=== PATIENT | female | born 1990 | race Caucasian/White ===

== ENCOUNTER 2018-05-27 06:36 | Emergency (ER) | payer OTHER ==
[2018-05-27] MEDS ORDERED: NS 1,000 ML IV ONE ×2 (07:16→07:27)
[2018-05-27] MEDS ORDERED: ONDANSETRON 4 MG/2 ML VIAL ONE (07:16)
[2018-05-27] MEDS ORDERED: ONDANSETRON 4 MG/2 ML VIAL IVP ONE (07:17)
[2018-05-27 07:20] LABS: PLATELET COUNT 264 10^3/uL (150-400)
[2018-05-27] MEDS ORDERED: FAMOTIDINE 20 MG/NACL 50 ML IV ONE (07:27)
--- NOTE | 2018-05-27 07:31 | EDPHY ---
H & P Time Seen by Provider: 05/27/18 06:57 HPI/ROS: HPI Nausea, muscle aches and joint aches, fatigue. 28-year-old female by private vehicle. She comes from work. She reports that 3 days ago she had some sharp stabbing pelvic pains and then started for menstruation. She reports that the lower abdominal cramping was more severe than usual. She is feeling better in that regard now but states that soon after this she developed muscle aches and joint aches followed by nausea and some intermittent vomiting. She also reports feeling fatigued. She got to work and felt nauseous and dry he did and was then sent to the emergency department for evaluation. She has had a mild and dry nonproductive cough. ROS: Constitutional: No fever, as above. Eyes: No discharge. No changes in vision. ENT: No sore throat. No nasal congestion or rhinorrhea. Respiratory: As above. No shortness of breath. Cardiac: No chest pain, no palpitations. Gastrointestinal: As above, no diarrhea. Genitourinary: No hematuria. No dysuria or increased frequency with urination. Musculoskeletal: As above. Skin: No rashes. Neurological: No headache. No focal weakness or altered sensation. Past medical history: Migraine headaches. Social history: Here by herself. Nonsmoker. No alcohol PE Physical Exam: General Appearance: Alert, no distress. This patient is responding to questions appropriately and in full sentences. This patient appears well- hydrated and well-nourished. Eyes: Pupils equal and round no pallor or injection. No lid edema, erythema or injection. Respiratory: There are no retractions, lungs are clear to auscultation with good air movement bilaterally. Cardiovascular: Regular rate and rhythm. No murmur. Gastrointestinal: Abdomen is soft and nontender, no masses, bowel sounds normal. No focal tenderness at McBurney's point. No Cárdenas sign. Neurological: Motor sensory function is grossly intact. Cranial nerves are normal. Gait is normal. Skin: Warm and dry, no rashes. Musculoskeletal: Neck is supple and nontender. Extremities are symmetrical. All joints range without pain or impingement. Psychiatric: No agitation. No depression. Database: EKG: Imaging: Chest x-ray: Mild bronchitis. Otherwise no acute cardiopulmonary disease process. Interpreted by me. Procedures: Emergency department course: IV was placed from triage. Triage vital signs reviewed. She is mildly tachycardic. Triage vital signs otherwise normal. She is afebrile. She was started on IV normal saline with 1-2 L to be given over the next hour. She was given 4 mg of IV Zofran from triage. After my evaluation she was given 20 mg of IV Pepcid. She has no contraindications to NSAIDs. A normal creatinine will be verified and then Toradol considered for her muscle aches and joint aches. Her presentation is consistent with a viral syndrome. Her abdominal exam was benign. 9:30 a.m., patient's workup is significant for urinary tract infection. Medication allergies reviewed. She states that she has allergies to penicillins and sulfa. She was started on ciprofloxacin, 500 mg orally in the emergency department. She feels comfortable going home at this time. Repeat abdominal exam she is soft, nontender nondistended. I will prescribe her ciprofloxacin to treat her urinary tract infection. Follow-up and return to emergency department precautions reviewed with her. All of her questions were answered. She was discharged from the emergency department in good condition. Differential Diagnosis: The differential diagnosis on this patient includes but is not limited to viral syndrome, urinary tract infection. Appendicitis, cholecystitis, pancreatitis, bowel obstruction unlikely. This represents a partial list of diagnoses considered. These considerations are based on history, physical exam, past history, reassessment and diagnostic testing. Smoking Status: Never smoked Constitutional: Initial Vital Signs Temperature (C) 36.8 C 05/27/18 06:46 Heart Rate 108 H 05/27/18 06:46 Respiratory Rate 20 05/27/18 06:46 Blood Pressure 122/79 H 05/27/18 06:46 O2 Sat (%) 94 05/27/18 06:46 O2 Delivery Mode Room Air Allergies/Adverse Reactions: penicillin G Allergy (Verified 05/27/18 06:46) Home Medications: Medication Instructions Recorded Ciprofloxacin [Cipro] 500 mg PO BID #10 tab 05/27/18 Ondansetron Odt [Zofran Odt 4 mg 4 mg PO Q4PRN PRN #10 tab 05/27/18 (*)] Medical Decision Making - Diagnostics Imaging Results: Imaging Impressions Chest X-Ray 05/27/18 07:32 Impression: Mild perihilar bronchitis, without a focal infiltrate. - Data Points Laboratory Results: Laboratory Results 05/27/18 07:10 05/27/18 07:10 05/27/18 05/27/18 05/27/18 08:03 07:10 07:10 WBC RBC Hgb Hct MCV MCH MCHC RDW Plt Count MPV Neut % (Auto) Lymph % (Auto) [place] % (Auto) Eos % (Auto) Baso % (Auto) Nucleat RBC Rel Count Absolute Neuts (auto) Absolute Lymphs (auto) Absolute Monos (auto) Absolute Eos (auto) Absolute Basos (auto) Absolute Nucleated RBC Immature Gran % Seg Neutrophils % Band Neutrophils % Lymphocytes % Monocytes % Eosinophils % Basophils % Metamyelocytes % Myelocytes % Promyelocytes % Blast Cells % Immature Gran # Absolute Seg Neuts Absolute Band Neuts Absolute Lymphocytes Absolute Monocytes Absolute Eosinophils Absolute Basophils Absolute Metamyelocyte Absolute Myelocytes Absolute Promyelocytes Absolute Plasma Cells Nucleated RBCs Absolute Blast Cells Plasma Cells % Platelet Estimate Sodium 137 mEq/L mEq/L (135-145) Potassium 3.7 mEq/L mEq/L (3.3-5.0) Chloride 102 mEq/L mEq/L (97-110) Carbon Dioxide 22 mEq/l mEq/l (22-31) Anion Gap 13 mEq/L mEq/L (8-16) BUN 10 mg/dL mg/dL (7-23) Creatinine 1.0 mg/dL mg/dL (0.6-1.0) Estimated GFR > 60 Glucose 102 mg/dL H mg/dL (70-100) Calcium 9.3 mg/dL mg/dL (8.5-10.4) Total Bilirubin 1.0 mg/dL mg/dL (0.1-1.4) AST 20 IU/L IU/L (14-46) ALT 29 IU/L IU/L (9-52) Alkaline Phosphatase 64 IU/L IU/L (38-126) Total Protein 6.8 g/dL g/dL (6.3-8.2) Albumin 4.0 g/dL g/dL (3.5-5.0) Lipase 65 IU/L IU/L (23-300) Beta HCG, Qual NEGATIVE Urine Color LILIYA Urine Appearance MODERATELY TURBID Urine pH 5.0 (5.0-7.5) Ur Specific [place] 1.018 (1.002-1.030) Urine Protein 1+ H (NEGATIVE) Urine Ketones TRACE H (NEGATIVE) Urine Blood 3+ H (NEGATIVE) Urine Nitrate POSITIVE H (NEGATIVE) Urine Bilirubin NEGATIVE (NEGATIVE) Urine Urobilinogen NEGATIVE EU EU (0.2-1.0) Ur Leukocyte Esterase 2+ H (NEGATIVE) Urine RBC 50-182 /hpf H /hpf (0-3) Urine WBC 50-182 /hpf H /hpf (0-3) Ur Epithelial Cells 1+ /lpf /lpf (NONE-1+) Urine Bacteria 4+ /hpf H /hpf (NONE SEEN) Hyaline Casts 5-15 /lpf /lpf (0-1) Urine Mucus 4+ /lpf H /lpf (NONE-1+) Urine Glucose NEGATIVE (NEGATIVE) 05/27/18 07:10 WBC 11.36 10^3/uL H 10^3/uL (3.80-9.50) RBC 4.80 10^6/uL 10^6/uL (4.18-5.33) Hgb 13.8 g/dL g/dL (12.6-16.3) Hct 40.4 % % (38.0-47.0) MCV 84.2 fL fL (81.5-99.8) MCH 28.8 pg pg (27.9-34.1) MCHC 34.2 g/dL g/dL (32.4-36.7) RDW 12.6 % % (11.5-15.2) Plt Count 264 10^3/uL 10^3/uL (150-400) MPV 10.5 fL fL (8.7-11.7) Neut % (Auto) Not Reported Lymph % (Auto) Not Reported [place] % (Auto) Not Reported Eos % (Auto) Not Reported Baso % (Auto) Not Reported Nucleat RBC Rel Count Not Reported Absolute Neuts (auto) Not Reported Absolute Lymphs (auto) Not Reported Absolute Monos (auto) Not Reported Absolute Eos (auto) Not Reported Absolute Basos (auto) Not Reported Absolute Nucleated RBC Not Reported Immature Gran % Not Reported Seg Neutrophils % 77.0 % % Band Neutrophils % 0.0 % % Lymphocytes % 12.0 % % Monocytes % 9.0 % % Eosinophils % 1.0 % % Basophils % 1.0 % % Metamyelocytes % 0.0 % % Myelocytes % 0.0 % % Promyelocytes % 0.0 % % Blast Cells % 0.0 % % Immature Gran # Not Reported Absolute Seg Neuts 8.75 10^/uL H 10^/uL (1.70-6.50) Absolute Band Neuts 0.00 10^3/uL 10^3/uL (0.00-0.70) Absolute Lymphocytes 1.36 10^3/uL 10^3/uL (1.00-3.00) Absolute Monocytes 1.02 10^3/uL H 10^3/uL (0.30-0.80) Absolute Eosinophils 0.11 10^3/uL 10^3/uL (0.03-0.40) Absolute Basophils 0.11 10^3/uL H 10^3/uL (0.02-0.10) Absolute Metamyelocyte 0.00 10^3/mL 10^3/mL (0.00-0.00) Absolute Myelocytes 0.00 10^3/mL 10^3/mL (0.00-0.00) Absolute Promyelocytes 0.00 10^3/uL 10^3/uL (0.00-0.00) Absolute Plasma Cells 0.00 10^3/uL 10^3/uL (0.00-0.00) Nucleated RBCs 0 /100 WBC /100 WBC (0-0) Absolute Blast Cells 0.00 10^3/uL 10^3/uL (0.00-0.00) Plasma Cells % 0.0 % % Platelet Estimate ADEQUATE (ADEQ) Sodium Potassium Chloride Carbon Dioxide Anion Gap BUN Creatinine Estimated GFR Glucose Calcium Total Bilirubin AST ALT Alkaline Phosphatase Total Protein Albumin Lipase Beta HCG, Qual Urine Color Urine Appearance Urine pH Ur Specific [place] Urine Protein Urine Ketones Urine Blood Urine Nitrate Urine Bilirubin Urine Urobilinogen Ur Leukocyte Esterase Urine RBC Urine WBC Ur Epithelial Cells Urine Bacteria Hyaline Casts Urine Mucus Urine Glucose Medications Given: Discontinued Medications Sodium Chloride (Ns) 1,000 mls @ 0 mls/hr IV EDNOW ONE; Wide Open PRN Reason: Protocol Stop: 05/27/18 07:17 Last Admin: 05/27/18 07:19 Dose: 1,000 mls Sodium Chloride (Ns) 1,000 mls @ 0 mls/hr IV EDNOW ONE; Wide Open PRN Reason: Protocol Stop: 05/27/18 07:28 Last Admin: 09/11/18 07:39 Dose: 1,000 mls Famotidine/Sodium Chloride (Pepcid 20 Mg (Premix)) 50 mls @ 200 mls/hr IV EDNOW ONE Stop: 05/27/18 07:41 Last Admin: 05/27/18 07:38 Dose: 50 mls Ondansetron HCl (Zofran) 4 mg IVP EDNOW ONE Stop: 05/27/18 07:18 Last Admin: 05/27/18 07:19 Dose: 4 mg Departure - Departure Disposition: Home, Routine, Self-Care Clinical Impression: Nausea and vomiting, Urinary tract infection Condition: Good Instructions: Urinary Tract Infection in Women (ED) Additional Instructions: Read and follow provided instructions. Follow-up with your primary care physician in 1-2 days for re-evaluation. Take antibiotic as prescribed through entire course of treatment. Return to the emergency department for worsening symptoms, back pain, nausea and vomiting, fever or other serious concerns. Referrals: NONE *PRIMARY CARE P,. [Primary Care Provider] - As per Instructions Prescriptions: Ciprofloxacin [Cipro] 500 mg PO BID #10 tab Ondansetron Odt [Zofran Odt 4 mg (*)] 4 mg PO Q4PRN PRN #10 tab PRN Reason: For Nausea & Vomiting
[2018-05-27] MEDS ORDERED: CIPROFLOXACIN 500 MG TAB PO ONE (09:42)
[2018-05-27 09:55] VITALS: BP 125/78
== END 2018-05-27 10:05 | disposition home or self-care (01) ==
DX: R11.2 Nausea with vomiting, unspecified (principal); N39.0 Urinary tract infection, site not specified; E86.9 Volume depletion, unspecified
CPT/HCPCS: 96374; J2405